=== PATIENT | male | born 1955 | race African-American/Black ===

== ENCOUNTER 2019-03-19 00:17 | Inpatient (IN) | payer MEDICAID ==
[2019-03-19] VITALS (7 sets, daily range): BP systolic 128–189; BP diastolic 81–111
[~2019-03-19] VITALS: Ht 182.9 cm; Wt 98.4 kg
[2019-03-19] MEDS ORDERED: ACETAMINOPHEN 325MG TABLET PO STA (00:28)
[2019-03-19] MEDS ORDERED: PIPERACILLIN/TAZ 3.375G PREMIX 50 ML IV ONE (00:30)
[2019-03-19] MEDS ORDERED: VANCOMYCIN 1 G PREMIX 200 ML IV ONE (00:30)
[2019-03-19] MEDS ORDERED: ACETAMINOPHEN 325MG TABLET GT STA (00:35)
[2019-03-19] MEDS ORDERED: SODIUM CHLORIDE 0.9% 1000ML BAG (SEPSIS BOLUS) IV ONE (00:45)
[2019-03-19 00:52] LABS: BASOPHILS % 0.5 % (0.0-2.0); EOSINOPHILS % 2.1 % (0.0-5.0); HEMATOCRIT. 38.3 % (42.0-52.0); HEMOGLOBIN. 13.3 g/dL (14.0-18.0); LYMPHOCYTES % 10.6 % (20.0-50.0); MEAN CORPUSCULAR HEMOGLOBIN 27.5 pg (28.0-32.0); MEAN CORPUSCULAR VOLUME 79.3 fL (80.0-94.0); MEAN PLATELET VOLUME 6.4 fl (7.4-10.4); MONOCYTES % 9.3 % (2.0-8.0); NEUTROPHILS % 77.5 % (40.0-76.0); PLATELET 162 x1000/uL (130-400); RED BLOOD CELL COUNT 4.83 mill/uL (4.7-6.1); RED CELL DISTRIBUTION WIDTH 18.8 % (11.6-14.6)
[2019-03-19 00:57] LABS: CHLORIDE 97 mEq/L (98-107)
[2019-03-19 00:58] LABS: INR 1.2; PROTHROMBIN TIME 12.6 sec (9.6-11.0)
[2019-03-19 00:58] LABS: BG BASE EXCESS 4.3 mmol/L (-2.0-2.0); BG CARBOXYHEMOGLOBIN 0.8 % (0.5-1.5); BG DEOXYHEMOGLOBIN 3.2 % (0.0-5.0); BG FRACTION INSPIRED OXYGEN 100; BG HCO3 ACT 27.9 mmol/L (22.0-26.0); BG METHEMOGLOBIN 0.4 % (0.0-1.5); BG OXYGEN SATURATION 96.8 % (92.0-98.5); BG OXYHEMOGLOBIN 95.6 % (94.0-97.0); BG PCO2 38.1 mmHg (35.0-45.0); BG PH 7.482 (7.350-7.450); BG PO2 90.3 mmHg (75.0-100.0); BG SAMPLE SITE RIGHT RADIAL; BG TOTAL HEMOGLOBIN 13.5 g/dL (12.0-18.0); BG VENT MODE MASK - NRB
[2019-03-19] MEDS ORDERED: KEPP500 MT (02:03)
[2019-03-19] MEDS ORDERED: CLON0.2T MT (02:04)
[2019-03-19] MEDS ORDERED: QUET200T29 MT (02:04)
[2019-03-19] MEDS ORDERED: METO100T16 MT (02:05)
[2019-03-19] MEDS ORDERED: LISI-604 PO (02:06)
[2019-03-19] MEDS ORDERED: ATOR-2 MT (02:07)
[2019-03-19] MEDS ORDERED: DILT30TA3 PO (02:08)
[2019-03-19] MEDS ORDERED: ASPI-1158 MT (02:08)
[2019-03-19] MEDS ORDERED: IPRA3AMP31 NEB (02:09)
[2019-03-19] MEDS ORDERED: SENN-149 MT (02:09)
[2019-03-19 03:17] LABS: CLARITY URINE CLOUDY (CLEAR); COLOR URINE AMBER (YELLOW); KETONES URINE TRACE (NEGATIVE); LEUKOCYTE ESTERASE URINE 1+ (NEGATIVE); NITRITE URINE NEGATIVE (NEGATIVE); OCCULT BLOOD URINE 2+ (NEGATIVE); PH URINE 6.5 (4.5-8.0); PROTEIN URINE 2+ (NEGATIVE); SPECIFIC GRAVITY URINE 1.045 (1.005-1.030)
[2019-03-19] MEDS: ACETYLCYSTEINE 100MG/ML 10% VIAL 4ML INH SCH (03:53)
[2019-03-19] MEDS ORDERED: IPRATROPIUM/ALBUTEROL 0.5-3(2.5)MG/3ML NEB HHN PRN (14:45)
[2019-03-19] MEDS: CLONIDINE 0.2MG TABLET GT SCH (16:56)
[2019-03-19] MEDS: HYDRALAZINE 20MG/ML VIAL IV PRN (16:57)
[2019-03-19] MEDS: DILTIAZEM HCL 30MG TABLET GT SCH (17:01)
[2019-03-19] MEDS: PIPERACILLIN/TAZ 3.375G PREMIX 50 ML IV SCH ×2 (17:43→21:31)
[2019-03-19] MEDS: IPRATROPIUM/ALBUTEROL 0.5-3(2.5)MG/3ML NEB HHN SCH (20:04)
[2019-03-19] MEDS: METOPROLOL TARTRATE 100MG TABLET GT SCH (21:30)
[2019-03-19] MEDS: ATORVASTATIN CALCIUM 40MG TABLET GT SCH (21:30)
[2019-03-19] MEDS: LEVETIRACETAM 500MG/5ML CUP GT SCH (21:30)
[2019-03-19] MEDS: QUETIAPINE FUMARATE 100MG TABLET GT SCH (21:30)
[2019-03-20] VITALS (14 sets, daily range): BP systolic 117–182; BP diastolic 72–104
[2019-03-20] MEDS: DILTIAZEM HCL 30MG TABLET GT SCH ×4 (00:16→18:36)
[2019-03-20] MEDS: IPRATROPIUM/ALBUTEROL 0.5-3(2.5)MG/3ML NEB HHN SCH ×5 (00:46→20:32)
[2019-03-20] MEDS ORDERED: BUDESONIDE 0.5MG/2ML NEB ONE (03:47)
[2019-03-20] MEDS: CLONIDINE 0.2MG TABLET GT SCH ×2 (04:22→16:13)
[2019-03-20] MEDS: PIPERACILLIN/TAZ 3.375G PREMIX 50 ML IV SCH ×4 (04:23→21:30)
[2019-03-20] MEDS: HYDRALAZINE 20MG/ML VIAL IV PRN (04:23)
[2019-03-20] MEDS: ASPIRIN 81MG TABLET GT SCH (09:44)
[2019-03-20] MEDS: LEVETIRACETAM 500MG/5ML CUP GT SCH ×2 (09:44→21:24)
[2019-03-20] MEDS: LISINOPRIL 20MG TABLET GT SCH (09:45)
[2019-03-20] MEDS: METOPROLOL TARTRATE 100MG TABLET GT SCH ×2 (09:45→21:29)
[2019-03-20] MEDS: QUETIAPINE FUMARATE 100MG TABLET GT SCH (21:24)
[2019-03-20] MEDS: ATORVASTATIN CALCIUM 40MG TABLET GT SCH (21:24)
[2019-03-21] VITALS (12 sets, daily range): BP systolic 116–176; BP diastolic 73–110
[2019-03-21] MEDS: ACETYLCYSTEINE 100MG/ML 10% VIAL 4ML INH SCH ×4 (00:21→23:56)
[2019-03-21] MEDS: IPRATROPIUM/ALBUTEROL 0.5-3(2.5)MG/3ML NEB HHN SCH ×7 (00:22→23:56)
[2019-03-21] MEDS: DILTIAZEM HCL 30MG TABLET GT SCH ×4 (00:51→17:40)
[2019-03-21] MEDS: PIPERACILLIN/TAZ 3.375G PREMIX 50 ML IV SCH ×4 (04:40→22:20)
[2019-03-21] MEDS: CLONIDINE 0.2MG TABLET GT SCH ×2 (04:40→16:11)
[2019-03-21] MEDS: METOPROLOL TARTRATE 100MG TABLET GT SCH ×2 (08:58→20:48)
[2019-03-21] MEDS: LEVETIRACETAM 500MG/5ML CUP GT SCH ×2 (08:58→20:47)
[2019-03-21] MEDS: LISINOPRIL 20MG TABLET GT SCH (08:58)
[2019-03-21] MEDS: ASPIRIN 81MG TABLET GT SCH (08:58)
[2019-03-21] MEDS: HYDRALAZINE 20MG/ML VIAL IV PRN (14:28)
[2019-03-21] MEDS: ENOXAPARIN 40MG/0.4ML SYR SUBCUT SCH (16:11)
[2019-03-21] MEDS: ATORVASTATIN CALCIUM 40MG TABLET GT SCH (20:47)
[2019-03-21] MEDS: QUETIAPINE FUMARATE 100MG TABLET GT SCH (20:48)
[2019-03-22] VITALS (15 sets, daily range): BP systolic 110–174; BP diastolic 70–101
[2019-03-22] MEDS: PIPERACILLIN/TAZ 3.375G PREMIX 50 ML IV SCH ×2 (03:49→09:14)
[2019-03-22] MEDS: IPRATROPIUM/ALBUTEROL 0.5-3(2.5)MG/3ML NEB HHN SCH ×4 (03:56→16:05)
[2019-03-22] MEDS: CLONIDINE 0.2MG TABLET GT SCH ×2 (04:03→17:00)
[2019-03-22] MEDS: DILTIAZEM HCL 30MG TABLET GT SCH ×4 (06:03→17:00)
[2019-03-22] MEDS: HYDRALAZINE 20MG/ML VIAL IV PRN ×2 (06:06→12:25)
[2019-03-22] MEDS: ACETYLCYSTEINE 100MG/ML 10% VIAL 4ML INH SCH ×2 (07:39→16:04)
[2019-03-22 09:00] LABS: BG BASE EXCESS 4.6 mmol/L (-2.0-2.0); BG CARBOXYHEMOGLOBIN 1.4 % (0.5-1.5); BG DEOXYHEMOGLOBIN 3.5 % (0.0-5.0); BG FRACTION INSPIRED OXYGEN 28; BG HCO3 ACT 28.9 mmol/L (22.0-26.0); BG METHEMOGLOBIN 0.3 % (0.0-1.5); BG OXYGEN SATURATION 96.4 % (92.0-98.5); BG OXYHEMOGLOBIN 94.8 % (94.0-97.0); BG PCO2 41.6 mmHg (35.0-45.0); BG PH 7.459 (7.350-7.450); BG PO2 88.7 mmHg (75.0-100.0); BG SAMPLE SITE RIGHT RADIAL; BG VENT MODE NASAL CANNULA
[2019-03-22] MEDS: METOPROLOL TARTRATE 100MG TABLET GT SCH ×2 (09:14→20:31)
[2019-03-22] MEDS: ASPIRIN 81MG TABLET GT SCH (09:14)
[2019-03-22] MEDS: LEVETIRACETAM 500MG/5ML CUP GT SCH ×2 (09:14→20:31)
[2019-03-22] MEDS: LISINOPRIL 20MG TABLET GT SCH (09:14)
[2019-03-22] MEDS ORDERED: LEVOFLOXACIN 500MG PREMIX 100 ML IV SCH (12:00)
[2019-03-22] MEDS: ENOXAPARIN 40MG/0.4ML SYR SUBCUT SCH (17:00)
[2019-03-22] MEDS: QUETIAPINE FUMARATE 100MG TABLET GT SCH (20:30)
[2019-03-22] MEDS: ATORVASTATIN CALCIUM 40MG TABLET GT SCH (20:31)
== END 2019-03-22 21:00 | disposition home or self-care (01) | DRG 720 ==
LOC: ER 00:17 → 5EST 04:50 → EDBEDREQTM 05:01 → EDBEDREQ 05:01 → ENRESERV 10:50
PROVIDERS: ADMIT Internal Medicine; ATTEND Internal Medicine
DX: A41.9 Sepsis, unspecified organism (principal); J96.01 Acute respiratory failure with hypoxia; E43 Unspecified severe protein-calorie malnutrition; G93.41 Metabolic encephalopathy; J15.1 Pneumonia due to Pseudomonas; G40.909 Epilepsy, unspecified, not intractable, without status epilepticus; N39.0 Urinary tract infection, site not specified; I10 Essential (primary) hypertension; E78.00 Pure hypercholesterolemia, unspecified; Z87.01 Personal history of pneumonia (recurrent); Z68.29 Body mass index [BMI] 29.0-29.9, adult; Z86.73 Personal history of transient ischemic attack (TIA), and cerebral infarction without residual deficits
CPT/HCPCS: 36415; 36600; 71045; 82375; 82805; 83605; 84145; 84484; 87070; 87077; 87186; 87804; 93005; 94640; 96374; 96375; 99285; A6261; J0360; J1650; J1956; J2543; J3370; J7030; J7050; J7608; J7620; J7626; A4315